=== PATIENT | female | born 1985 | race Caucasian/White ===

== ENCOUNTER 2020-12-23 11:27 | Outpatient (REF) | payer OTHER, SELFPAY ==
[2020-12-23 14:17] LABS: Free T4 (Free Thyroxine) 0.94 ng/dL (0.71-1.85); Vitamin D 25-OH Total 24.3 ng/mL (>30)
== END 2020-12-23 11:28 | disposition home or self-care (01) ==
LOC: HO.MANLDS 11:27
PROVIDERS: PCP Internal Medicine; Visit Provider Physician Assistant
DX: F41.9 Anxiety disorder, unspecified (principal); E55.9 Vitamin D deficiency, unspecified
CPT/HCPCS: 36415; 82306; 84439; 84443

== ENCOUNTER 2025-02-26 10:02 | Outpatient (REF) | payer BC, SELFPAY ==
--- OUTSIDE RECORDS SUMMARY | 2025-02-26 10:34 | XMS_ITS | Encounter Summary ---
Author Organization [facility] Address [address] [place] [phone] Phone Care Team Providers Care Receiver Bulk System Name Role Phone Mai Cisneros CNP Primary Care Provider Faisal Miranda DO Unavailable Encounter Details Date Type Department Care Team (Latest Contact Info) Description 10/17/2018 Transcribe Orders Virtual Department [address] [place] [address] Mai Cisneros [employer] [address] [place] [phone] Nontoxic single thyroid nodule (Primary Dx) Social History Tobacco Use Types Packs/Day Years Used Date Smoking Tobacco: Never Assessed Comments Unknown Sex and Gender Information Value Date Recorded Sex Assigned at Not on file Legal Sex Female 10:28 PM EDT Gender Identity Not on file Sexual Orientation Not on file documented as of this encounter Plan of Treatment Not on file documented as of this encounter Results * US Thyroid Gland (10/26/2018 11:45 AM EDT) Anatomical Region Laterality Modality Neck, Head, Chest Ultrasound 10/26/2018 12:2 1 PM EDT Impressions 10/26/2018 12:23 PM EDT Normal thyroid ultrasound. No nodule or mass lesion is seen. S/S: Palpable nodule thyroid gland on physical exam POS - [id number] Narrative 10/26/2018 12:23 PM EDT COMPARISON: None FINDINGS: The right thyroid lobe measures 5.1 x 1.1 x 1.7 cm in size. The left thyroid lobe measures 4.7 x 1.2 x 1.7 cm in size. The thyroid gland is unremarkable with no nodularity or mass lesions seen. No significant hyperemia is evident. Procedure Note Cassius Griffin MD - 10/26/2018 COMPARISON: None FINDINGS: The right thyroid lobe measures 5.1 x 1.1 x 1.7 cm in size. The leftthyroid lobe measures 4.7 x 1.2 x 1.7 cm in size. The thyroid gland is unremarkable with no nodularity or mass lesions seen.No significant hyperemia is evident. IMPRESSION: Normal thyroid ultrasound. No nodule or mass lesion is seen. S/S: Palpable nodule thyroid gland on physical exam POS - [id number] us Mai Cisneros CNP IM US THYROID Final Resul t documented in this encounter Visit Diagnoses Diagnosis Nontoxic single thyroid nodule- Primary Nontoxic uninodular goiter Nontoxic single thyroid nodule Nontoxic uninodular goiter documented in this encounter Care Teams Receiver Bulk System Relationship Specialty Start Date End Date Mai Cisneros CNP PCP - General Family Medicine 10/17/18 Faisal Miranda DO [address] [place] [id number] Insurance Assigned Provider 10/29/23 documented as of this encounter Additional Source Comments The information contained in this document represents components of the legal health record. It is not the complete legal health record.[facility]
[2025-02-26 13:24] LABS: MANUAL DIFF FLAG NO
[2025-02-26 13:43] LABS: Hematocrit 35.6 % (37.0-47.0); Hemoglobin 12.3 g/dl (12.0-16.0); Imm Gran Abs Auto 0.01 X10*3/uL (0.00-0.03); Imm Gran Pct Auto 0.2 % (0.0-0.4); Lymphocytes Absolute Auto 1.5 X10*3/uL (1.2-4.9); Mean Corpuscular HGB Conc 34.6 g/dl (31.0-35.0); Mean Corpuscular Hemoglobin 30.1 pg (27.0-33.0); Mean Corpuscular Volume 87.3 fL (80.0-98.0); NRBC Abs Auto 0.000 X10*3/uL (0.0-0.012); NRBC Pct Auto 0.0 /100WBC (0.0-0.2); Platelet Count 249 X10*3/uL (160-400); Red Blood Count 4.08 X10*6/uL (4.20-5.50); White Blood Count 4.2 X10*3/uL (4.8-10.8)
[2025-02-26 13:48] LABS: Hemoglobin A1C 95.5764 umol/L; Total Hemoglobin (HGBA1C) 3251.3004 umol/L
[2025-02-26 14:03] LABS: Alanine Aminotransferase 25 U/L (0-31); Albumin Level 4.6 g/dL (3.5-5.0); Alkaline Phosphatase 100 U/L (39-117); Anion Gap 14 (12-20); Aspartate Amino Transferase 29 U/L (5-31); Blood Urea Nitrogen 7 mg/dL (9-16); Calcium 8.7 mg/dL (8.4-10.2); Carbon Dioxide 23 mmol/L (22-29); Chloride 106 mmol/L (96-108); Cholesterol 235 mg/dL (<200); Estimated Glomerular Filt Rate > 60; HDL Cholesterol 57 mg/dL (>40); Iron 165 mcg/dL (30-160); Percent Iron Saturation 39 % (15-50); Potassium 4.1 mmol/L (3.3-5.1); Sodium 139 mmol/L (135-145); Total Iron Binding Capacity 425 mcg/dL (228-428); Total Protein 7.2 g/dL (6.5-8.0); Triglycerides 263 mg/dL (<150); Unsaturated Iron Binding 260 ug/dL
[2025-02-26 14:12] LABS: Ferritin 31 ng/mL (10-250); Free T4 (Free Thyroxine) 0.91 ng/dL (0.71-1.85); Thyroid Stimulating Hormone 1.29 uIU/mL (0.32-4.0)
[2025-02-26 14:28] LABS: Folate 13.9 ng/mL (> or = 4.0); Vitamin B12 394 pg/mL (200-900)
== END 2025-02-26 10:03 | disposition home or self-care (01) ==
LOC: HO.MANLDS 10:02
PROVIDERS: Visit Provider Physician Assistant
DX: Z00.00 Encounter for general adult medical examination without abnormal findings (principal); Z13.1 Encounter for screening for diabetes mellitus; Z13.6 Encounter for screening for cardiovascular disorders; R63.5 Abnormal weight gain
CPT/HCPCS: 36415; 80053; 80061; 82306; 82533; 82607; 82728; 82746; 83036; 83525; 83540; 84439; 84443; 85025